=== PATIENT | female | born 1940 | race Caucasian/White ===

== ENCOUNTER 2017-04-02 07:31 | Day surgery (SDC) | payer MEDICARE ==
[2017-03-26 12:58] LABS: BASOPHILS 0.5 %; BASOPHILS ABSOLUTE 0.03 10/3/uL (0.0-0.16); EOSINOPHILS 1.9 %; EOSINOPHILS ABSOLUTE 0.12 10/3/uL (0.0-0.53); HEMATOCRIT 35.9 % (36.0-48.0); HEMOGLOBIN 11.9 g/dL (12.0-16.0); IMMATURE GRANULOCYTES 0.2 %; IMMATURE GRANULOCYTES ABSOLUTE 0.01 10/3/uL (0.0-0.11); LYMPHOCYTES 31.3 %; LYMPHOCYTES ABSOLUTE 2.03 10/3/uL (0.67-4.30); MEAN CORPUS HGB CONC 33.1 g/dL (32.0-36.0); MEAN CORPUSCULAR HEMOGLOB 30.8 pg (26.0-34.0); MEAN PLATELET VOLUME 10.1 fL (9.2-13.0); MONOCYTES 5.1 %; MONOCYTES ABSOLUTE 0.33 10/3/uL (0.21-1.20); NEUTROPHILS ABSOLUTE 3.96 10/3/uL (2.02-8.40); PLATELET COUNT 234 10/3/uL (150-400); RBC DISTRIBUTION WIDTH 13.8 % (12.0-16.0); RED CELL COUNT 3.86 10/6/uL (4.0-5.6); WHITE BLOOD CELLS 6.5 10/3/uL (4.5-10.5)
[2017-03-26 12:59] LABS: MANUAL DIFF NO %
[2017-03-26 13:29] LABS: A/G RATIO 1.2 (0.7-1.9); ALBUMIN 3.4 G/DL (3.5-5.0); ALKALINE PHOSPHATASE 127 U/L (45-117); CALCIUM, SERUM 9.3 MG/DL (8.5-10.4); CHLORIDE, SERUM 105 MMOL/L (96-112); CO2 (CARBON DIOXIDE) 29 MMOL/L (24-34); CREATININE 0.98 MG/DL (0.55-1.02); GFR AFRICAN AMERICAN 64 ML/MIN (>=60); GFR NON AFRICAN AMERICAN 55 ML/MIN (>=60); POTASSIUM, SERUM 3.7 MMOL/L (3.5-5.3); SGOT(AST) 20 U/L (5-40); SGPT(ALT) 21 U/L (5-65); SODIUM, SERUM 141 MMOL/L (135-148); TOTAL BILIRUBIN 0.3 MG/DL (0-1.2); TOTAL PROTEIN 6.2 G/DL (6.0-8.5)
[2017-03-26 13:30] LABS: BUN (BLOOD UREA NITROGEN) 18 MG/DL (6-23); GLOBULIN 2.8 G/DL (2.5-4.1); GLUCOSE, SERUM 234 MG/DL (60-99)
--- NOTE | ~2017-04-02 | OP ---
Record Of Operation [facility] [address] [place]. [address] NAME: YOVANA CALDERON : 36 STATUS : [place] [facility] [place] PAT#: [id number] AGE: 76 ADM/REG DATE : 04/02/17 MR#: [id number] REPORT SERV DATE: 04/02/17 DICTATED BY: BLANKA CHAUDHARY III DATE: 04/02/17 REPORT STATUS : Draft TRANSCRIBED BY: MATTHEW DATE: 04/02/17 DATE OF PROCEDURE: 04/02/2017 PREOPERATIVE DIAGNOSES: 1. Recurrent neoplasm of the forehead. 2. Recurrent neoplasm of the left breast. POSTOPERATIVE DIAGNOSES: 1. Recurrent neoplasm of the forehead. 2. Recurrent neoplasm of the left breast. PROCEDURE: Wide local resection of the recurrent skin neoplasm of the left breast and recurrent neoplasm of the forehead. ANESTHESIA: General with intubation. COMPLICATIONS: None. ESTIMATED BLOOD LOSS: Less than 2 mL. SPECIMENS: Neoplasm with the skin from the left breast and forehead. DRAINS: None. LAP AND SPONGE COUNT: Correct x3. BRIEF HISTORY: This 76-year-old female presented with recurrent neoplasm of the left breast and forehead. These it had been previously excised about one year ago, and were basal cell carcinomas. These now appear to be recurring locally and it was felt that wide excision of both of these areas were indicated. The procedure, risks, benefits, and alternatives, including but not limited to the risk for bleeding, infection, pain, swelling, scarring or deformity of either or both areas, possible need for further surgery, and unforeseen complications including deep venous thrombosis, pulmonary embolus, myocardial infarction, stroke, pneumonia, and were fully and completely explained to the patient and family prior to the surgery. Her questions were answered. She understood the risks and agreed to the surgery as planned. DESCRIPTION OF PROCEDURE: After being properly identified, and after discussing the risks and benefits of the surgery with her again in the preoperative area, and after identifying and marking each of the areas with her in the preoperative area, the patient was taken to the operating room, and placed in supine position on the operating room table. General anesthesia was administered, and she was intubated without difficulty. The forehead and left breasts were prepped and draped sterilely in the usual fashion. After an appropriate "time-out" per [employer] standards, an elliptical-shaped horizontally oriented incision was made around the lesion on the left breast. The incision was made so as to have a widely clear margin around the lesion. The length of the incision was 3 cm. The lesion was excised and Record Of Operation [facility] [address] [place]. [address] NAME: YOVANA CALDERON : 36 STATUS : [place] [facility] [place] PAT#: [id number] AGE: 76 ADM/REG DATE : 04/02/17 MR#: [id number] REPORT SERV DATE: 04/02/17 DICTATED BY: BLANKA CHAUDHARY III DATE: 04/02/17 REPORT STATUS : Draft TRANSCRIBED BY: MATTHEW DATE: 04/02/17 oriented with sutures, and sent for permanent pathology. Using sharp dissection, the skin and subcutaneous tissue around the periphery of the wound was mobilized. Hemostasis was assured. The subcutaneous tissue was closed with 3-0 Vicryl suture. The skin was closed with running subcuticular 4-0 Monocryl stitch. The incision was injected with 0.5% Marcaine. We then turned our attention to the lesion on the forehead. Similarly, a wide elliptical- shaped incision was made around this lesion. The incision was made so as to have grossly clear margins around the lesion completely. The lesion was oriented with sutures and sent for permanent pathology. An additional 9 o'clock margin was sent separately. Hemostasis was assured. The incision was closed with a running 4-0 Monocryl stitch. The incision was injected with 0.5% Marcaine. Dressings were applied. Anesthesia was reversed, and the patient was taken to the recovery room in stable condition. She tolerated the procedure well. Her family was informed the results of the surgery. The patient will be discharged when stable and comfortable. Her family was advised to keep the wound clean and dry for 48 hours, that she should not drive for two to three days after surgery or while using narcotics, and that she should resume her usual medications. She has been asked to return in two weeks for followup or sooner if any fever, chills, wound drainage, or other problems prior to that time. She was given a prescription for Percocet 7.5 one t.i.d., #10, as needed for pain, which she was advised not to use while driving. MARY/MATTHEW Blanka Chaudhary III, M.D. / [id number] CC: Maggie Felipe III, M.D.
--- NOTE | ~2017-04-02 | PREOPHP ---
PreOp History and Physical [facility] [id number] [place]. [address] NAME: YOVANA CALDERON : 36 STATUS : PRE [facility] [place] PAT#: [id number] AGE: 76 ADM/REG DATE : MR#: [id number] REPORT SERV DATE: 04/02/17 DICTATED BY: BLANKA CHAUDHARY III DATE: 02/25/17 REPORT STATUS : Draft TRANSCRIBED BY: MODL DATE: 02/25/17 HISTORY OF PRESENT ILLNESS: This 76-year-old female comes to the operating for resection of a cutaneous neoplasm of the left forehead and another cutaneous lesion of the left chest, both suspicious for cutaneous malignancy. The patient has a history of basal cell carcinoma in both of these areas, which were removed one year ago. She had clear margins at that time. She now has recurrent lesions of concern for recurrent basal cell carcinoma. She comes now for wider excision of these lesions. These will be removed in the operating room because of the size of the lesions and the fact that they are recurrent. PAST MEDICAL HISTORY: 1. History of basal cell carcinoma of the forehead and left breast or chest as above. 2. Fibrocystic disease. 3. History of right breast DCIS, status post lumpectomy. 4. Hypertension. 5. Alq-jfwzohr-gvgnslwda diabetes mellitus. 6. Degenerative joint disease. 7. Sleep apnea. 8. Hypothyroidism. ALLERGIES: SULFA, INDOCIN, ERYTHROMYCIN, PHENYLBUTAZONE, CYTOTEC, LOTENSIN, VISTARIL, PLAQUENIL, AND AMLODIPINE. PAST SURGICAL HISTORY: Includes right breast lumpectomy, appendectomy, cholecystectomy, bilateral knee surgeries, hysterectomy. FAMILY HISTORY: Positive for breast cancer and heart disease. SOCIAL HISTORY: No history of tobacco or alcohol use. REVIEW OF SYSTEMS: The patient complains of easy bruising. A 14-point review of systems otherwise unremarkable except for joint pain and back pain. OBJECTIVE PHYSICAL EXAM: GENERAL: Reveals an obese female, in no acute distress. She is alert and oriented x3. HEENT: Unremarkable except for a cutaneous lesion of the left forehead, which is about 1.5 cm in size. It is raised and irregular. LUNGS: Clear. CARDIAC: Normal. BREASTS: The left breast has a 1- to 2-cm irregular cutaneous lesion, which is raised and irregular, concerned for cutaneous malignancy. Both axilla are normal. EXTREMITIES: Normal. ASSESSMENT: 1. A 76-year-old female with cutaneous lesions of the left forehead and left breast, concerned for cutaneous neoplasm or malignancy. 2. History of basal cell carcinoma in the past of the forehead and chest. PreOp History and Physical [address] [address] NAME: YOVANA CALDERON : 36 STATUS : PRE [facility] [place] PAT#: [id number] AGE: 76 ADM/REG DATE : MR#: [id number] REPORT SERV DATE: 04/02/17 DICTATED BY: BLANKA CHAUDHARY III DATE: 02/25/17 REPORT STATUS : Draft TRANSCRIBED BY: MATTHEW DATE: 02/25/17 3. Fibrocystic disease. 4. Ductal carcinoma in situ. 5. Hypertension. 6. Qml-uydxaax-pardhlfuf diabetes mellitus. 7. Degenerative joint disease. 8. Hypothyroidism. 9. Sleep apnea. PLAN: The patient comes to the operating room now for resection of both of these cutaneous neoplasms of the forehead and left breast or left chest. These procedures, the risks, benefits, and alternatives, including, but not limited to the risk for bleeding, infection, pain, swelling, scarring, or deformity to either or both areas, seroma formation, hematoma formation, anesthetic complications, and unforeseen complications including deep venous thrombosis, pulmonary embolus, myocardial infarction, stroke, pneumonia, and , have been explained to the patient prior to surgery. Her questions have been answered. She understands the risks and agrees to surgery as planned. MARY/MATTHEW Blanka Chaudhary III, M.D. / [id number]
[~2017-04-02 07:31] MED LIST: AMARYL2 PO; ASABAYER PO; CAT2 PO; CYANO1000T PO; DEMA20 PO; DIOVAN HCT320 MG/25 PO; EVISTA60 PO; FERROUS SULF325 M1 PO; GLUCPH PO; K500 PO; KLOR-CON 1010 MEQ PO; LOP25 PO; NEUR400 PO; OSTEO BI-FLEX1 EACH PO; PLEND5 PO; PRILO PO; SYN.05 PO; SYSTANE OPH; ULTRAM50 PO; VITAMIN D31000 UNIT PO; VITC500 PO
== END 2017-04-02 15:28 | disposition home or self-care (01) ==
LOC: SDC 07:31
PROVIDERS: Surgery
PROC: 0HB1XZZ Excision of Face Skin, External Approach (ICD-10-PCS; 2017-04-02)
PROC: 0HBU0ZX Excision of Left Breast, Open Approach, Diagnostic (ICD-10-PCS; principal; 2017-04-02 09:00)
DX: C44.319 Basal cell carcinoma of skin of other parts of face (principal); C44.511 Basal cell carcinoma of skin of breast; I10 Essential (primary) hypertension; G47.33 Obstructive sleep apnea (adult) (pediatric); Z99.89 Dependence on other enabling machines and devices; K21.9 Gastro-esophageal reflux disease without esophagitis; E11.9 Type 2 diabetes mellitus without complications; E03.9 Hypothyroidism, unspecified; D64.9 Anemia, unspecified; Z79.899 Other long term (current) drug therapy; Z79.84 Long term (current) use of oral hypoglycemic drugs; Z79.891 Long term (current) use of opiate analgesic; Z79.82 Long term (current) use of aspirin; Z88.2 Allergy status to sulfonamides; Z88.5 Allergy status to narcotic agent; Z88.1 Allergy status to other antibiotic agents; Z88.8 Allergy status to other drugs, medicaments and biological substances; Z91.013 Allergy to seafood; Z91.012 Allergy to eggs
CPT/HCPCS: 71020; 80053; 82962; 85025; 88305; 93005; A9270-GY; J0690; J3010